=== PATIENT | male | born 1965 | race Caucasian/White ===

== ENCOUNTER → 2016-11-10 | Day surgery (SDC) | payer BC ==
[~2016-11-10] MED LIST: FENOFIBRATE145 MG PO; FLOMAX0.4 M1 PO; JANUMET 50-1,01 EACH PO; LANTUS SOL100 UNIT/1 SUBQ; LIPITOR20 MG PO; LOSARTAN POTASS50 MG PO; METOPROLOL TAR25 MG PO; NOVOLOG FL100 UNIT/1 SUBQ
--- NOTE | ~2016-11-10 | OR ---
Unit #: [id number] #: [id number] Patient: RODRIGUE ROCK [id number] [address] [place], [place] [address] [id number] O MR#: [id number] NAME: RODRIGUE ROCK ROOM: Date of Procedure: 11/10/2016 Admission Date: 11/10/2016 Surgeon: Jean Luz M.D. : 1965 Attending Physician: Jean Luz M.D. Primary Care Physician: Cb Forbes M.D. OPERATIVE REPORT PRIMARY CARE PHYSICIAN Cb Forbes M.D. PREOPERATIVE DIAGNOSIS Colorectal cancer screening in an average-risk patient. PROCEDURE PERFORMED Colonoscopy up to cecum and terminal ileum with excellent preparation and good visualization. POSTOPERATIVE DIAGNOSES Mild sigmoid and descending colon diverticulosis. Otherwise, normal examination up to cecum and terminal ileum. The quality of the prep was excellent. No polyps were seen. RECOMMENDATIONS Repeat colonoscopy in 10 years. SEDATION USED MAC. DESCRIPTION OF PROCEDURE Following detailed explanation of the potential risks and complications of a colonoscopy, namely perforation, bleeding, and complications related to sedation, the patient was brought to GI lab and laid in the left lateral decubitus position. A digital rectal examination was performed, which was normal. Lubricated tip of the Olympus video colonoscope was inserted through the anus and advanced under direct vision. The scope was advanced past rectosigmoid into descending colon. Scant small diverticula were noted in this area. The scope tip was then navigated all the way up to cecum with visualization of the ileocecal valve and the appendiceal orifice. Preparation was excellent with good visualization and photodocumentation was obtained. Last several inches of the terminal ileum were also visualized after intubation of the ileocecal valve and appeared normal. Successive segments of the colonic mucosa were examined upon withdrawal and appeared unremarkable. There being no polyps, mass lesions, or AVMs. Other than the scant diverticula seen in the left side, no other abnormalities were found. The patient did not have any hemorrhoids at the anal verge. The scope was then withdrawn and the patient returned to the recovery area. He tolerated the procedure without any postprocedure complications. Unit #: [id number] #: [id number] Patient: RODRIGUE ROCK Dictated by... Jean Luz M.D. AK/checo TD: 11/10/2016 14:27 JOB #: [id number] CC: Cb Forbes M.D. OPERATIVE REPORT Page 1 of 1 X Jean Luz MD X PROCEDURE OPERATIVE NOTE
== END | disposition home or self-care (01) ==
LOC: COPS 07:55
DX: Z12.11 Encounter for screening for malignant neoplasm of colon (principal); K57.30 Diverticulosis of large intestine without perforation or abscess without bleeding; E11.9 Type 2 diabetes mellitus without complications; I10 Essential (primary) hypertension; E78.5 Hyperlipidemia, unspecified; I25.10 Atherosclerotic heart disease of native coronary artery without angina pectoris; Z95.1 Presence of aortocoronary bypass graft; Z79.4 Long term (current) use of insulin; Z79.899 Other long term (current) drug therapy
CPT/HCPCS: 82947; J2250